=== PATIENT | male | born 1995 | race Two or more races ===

== ENCOUNTER 2016-10-28 08:17 | Emergency (ER) | payer SELFPAY ==
[~2016-10-28] VITALS: Ht 165.1 cm; Wt 54.4 kg
[2016-10-28] MEDS ORDERED: ACETAMINOPHEN 325 MG TABLET ONE (08:50)
[2016-10-28] MEDS ORDERED: ACETAMINOPHEN 325 MG TABLET PO ONE (09:00)
[2016-10-28 12:17] VITALS: BP 120/88
== END 2016-10-28 12:18 | disposition home or self-care (01) ==
LOC: ER 08:21
DX: S67.192A Crushing injury of right middle finger, initial encounter (principal); S60.412A Abrasion of right middle finger, initial encounter; Q84.6 Other congenital malformations of nails; W23.0XXA Caught, crushed, jammed, or pinched between moving objects, initial encounter; Y93.89 Activity, other specified; Y92.89 Other specified places as the place of occurrence of the external cause; Y99.9 Unspecified external cause status
CPT/HCPCS: 10060; 73140; 99284; A4606; A6402; Z7610

== ENCOUNTER 2016-11-06 18:09 | Inpatient (IN) | payer MEDICAID ==
[~2016-11-06] VITALS: Ht 167.6 cm; Wt 63.5 kg
--- NOTE | 2016-11-06 18:15 | NUR ---
AAOX3, BIB RA FROM THE STREET C/O RIGHT FOOT SWELLING, REDNESS AND HOT TO TOUCH. RESP IS EVEN AND UNLABORED WITH NAD NOTED. CMS WNL. SKIN IS WARM AND DRY. AWAITING MD FOR EVAL.
[2016-11-06] MEDS ORDERED: IV NS 0.9% 2,000 ML ONE (18:59)
[2016-11-06] MEDS ORDERED: KETOROLAC TROMETHAMINE INJ 30 MG/ML VIAL ONE (18:59)
[2016-11-06] MEDS ORDERED: MORPHINE SULFATE INJ 4 MG/ML DISP.SYRIN ONE (18:59)
[2016-11-06] MEDS ORDERED: IV SET PRIMARY 1 EA INFUS.SET MC ONE (18:59)
[2016-11-06] MEDS ORDERED: IV SET PRIMARY PUMP SET 1 EA INFUS.SET MC ONE (18:59)
[2016-11-06] MEDS ORDERED: KETOROLAC TROMETHAMINE INJ 30 MG/ML VIAL IV ONE (19:00)
[2016-11-06] MEDS ORDERED: MORPHINE SULFATE INJ 2 MG/ML DISP.SYRIN IV ONE (19:00)
[2016-11-06] MEDS ORDERED: CLINDAMYCIN 600 MG in IV D5W 100 ML IV ONE (19:00)
[2016-11-06] MEDS ORDERED: IV NS 0.9% 1,000 ML BAG IV ONE (19:00)
--- NOTE | 2016-11-06 19:00 | NUR ---
RECEIVED REPORT FROM NAY AGARWAL.
--- NOTE | 2016-11-06 19:01 | NUR ---
CALLED PHARMACY FOR MEDICATION.
--- NOTE | 2016-11-06 19:03 | NUR ---
XRAY AT BEDSIDE.
[2016-11-06 19:11] LABS: BASOPHILS # (AUTO) 0.5 /CMM (0.0-0.2); BASOPHILS % (AUTO) 3.1 % (0.0-2.0); EOSINOPHILS # (AUTO) 0.1 /CMM (0.0-0.7); EOSINOPHILS % (AUTO) 0.3 % (0.0-6.0); HEMATOCRIT 48 % (39-51); HEMOGLOBIN 16.6 g/dL (13.5-17.5); LYMPHOCYTES # (AUTO) 1.7 /CMM (0.8-4.8); LYMPHOCYTES % (AUTO) 9.9 % (20.0-44.0); MEAN CORPUSCULAR HEMOGLOBIN 29 PG (26.0-33.0); MEAN CORPUSCULAR HGB CONC 34 g/dl (31.0-36.0); MEAN CORPUSCULAR VOLUME 86 fL (80-96); MONOCYTES # (AUTO) 0.8 /CMM (0.1-1.30); MONOCYTES % (AUTO) 4.5 % (2.0-12.0); NEUTROPHILS # (AUTO) 13.9 /CMM (1.8-8.9); NEUTROPHILS % (AUTO) 82.2 % (43.0-81.0); PLATELET COUNT (AUTO) 267 /CMM (150-450); RDW COEFFICIENT OF VARIATION 12.2 (11.5-15.0); RED BLOOD CELL COUNT(AUTO) 5.65 MIL/uL (4.5-6.0)
[2016-11-06 19:18] LABS: CREATININE 1.1 mg/dL (0.6-1.3); POTASSIUM 4.3 mmol/L (3.5-5.1)
[2016-11-06 19:19] LABS: INR 1.09 (0.87-1.13); PROTHROMBIN TIME 11.4 SECS (9.5-12.7)
[2016-11-06] MEDS ORDERED: IV D5W 100 ML IV ONE (19:22)
[2016-11-06] MEDS ORDERED: CLINDAMYCIN 900 MG/6 ML VIAL ONE (19:22)
--- NOTE | 2016-11-06 19:32 | NUR ---
panel call. notified.
[2016-11-06 19:36] LABS: LACTIC ACID 1.3 mmol/L (0.4-2.0)
--- NOTE | 2016-11-06 20:33 | NUR ---
PT ASSIGNED TO MS 322-2
--- NOTE | 2016-11-06 20:44 | NUR ---
REPORT GIVEN TO NAY MCKENZIE FOR MS BED 322-2
[2016-11-06] MEDS ORDERED: Z GUARD REMEDY 2 OZ OINT TP PRN (21:00)
[2016-11-06] MEDS ORDERED: ONDANSETRON HCL/PF 4 MG/2 ML VIAL IVP PRN (21:00)
[2016-11-06] MEDS ORDERED: ZOLPIDEM TARTRATE 5 MG TABLET PO PRN (21:00)
[2016-11-06] MEDS ORDERED: CLINDAMYCIN IV RTU IN D5W 900 MG/50 ML PIGGYBACK IV SCH (21:00)
[2016-11-06] MEDS ORDERED: ACETAMINOPHEN 325 MG TABLET PO PRN (21:00)
[2016-11-06] MEDS ORDERED: MAGNESIUM HYDROXIDE 30 ML UDC PO PRN (21:00)
[2016-11-06] MEDS ORDERED: MAG HYDROX/AL HYDROX/SIMETH 30 ML UDC PO PRN (21:00)
--- NOTE | 2016-11-06 21:22 | NUR ---
PT TRASNFERED TO MS BED 322-2 VIA WC
[2016-11-06 21:30] VITALS: BP 106/74
--- NOTE | 2016-11-06 23:37 | NUR ---
MS/RN NOTES NEW ADMITTED PATIENT IS A 20YO MALE,COMPLAIN OF RIGHT FOOT PAIN/SWOLLEN FOR PAST 3DAYS. ALERT ORIENTEDX4. HOMELESS AND WAS FOUND ON FLOOR BY OFFICER. PATIENT REQUIRES ASSISTANCE IN AMBULATION AND HAVE REQUESTED TREATMENT FOR HIS SWOLLEN RIGHT FOOT AND MENTIONED THAT HE WOULD LIKE TO SEEK PSYCHIATRIC EVALUATION DUE TO DEPRESSION AND SUICIDAL THOUGHT IN PLANING STAGE. MD MADE AWARE. PATIENT REQUEST FOR SMOKING CESSATION ALSO. PROVIDED PATIENT ROOM ORIENTATION, CHECK BELONGINGS, PROVIDE SNACKS AND FLUIDS. WILL CONTINUE PLAN OF CARE AND CONTINUE MONITORING.
[2016-11-07] MEDS ORDERED: CLINDAMYCIN 900 MG/6 ML VIAL ONE (02:32)
[2016-11-07] MEDS ORDERED: IV D5W 50 ML IV ONE (02:39)
[2016-11-07] MEDS ORDERED: IV SET PRIMARY PUMP SET 1 EA INFUS.SET MC ONE (02:39)
[2016-11-07] MEDS ORDERED: SECONDARY IV SET 1 EA INFUS.SET MC ONE ×2 (02:40→12:29)
[2016-11-07] MEDS ORDERED: HYDROCODONE/APAP 5/325MG 1 EACH TABLET ONE (03:14)
[2016-11-07] MEDS: HYDROCODONE/APAP 5/325MG 1 EACH TABLET PO PRN ×3 (03:19→18:43)
--- NOTE | 2016-11-07 04:30 | NUR ---
MS/RN NOTES PATIENT ABLE TO SLEEP DURING THE NIGHT AND CAN VERBALIZE NEEDS. PAIN MEDICATION ADMINISTER DUE TO SEVERE PAIN ON RIGHT FOOT. TOLERATE MEDS AND WILL CONTINUE TO MONITOR .COOPERATIVE TO CARE.
--- NOTE | 2016-11-07 06:35 | NUR ---
MS/RN CLOSING NOTES PATIENT IN BED AWAKE. ABLE TO HAVE AM BLOOD DRAW. CALL LIGHTS WITHIN REACH. USES URINAL. ABLE TO SLEEP DURING THE NIGHT. LAST PAIN MEDICATION NORCO 5-325 MG TAB PO GIVEN AT 0300. WILL ENDORSE TO AM RN FOR CONTINUITY OF CARE.
--- NOTE | 2016-11-07 07:16 | NUR ---
MS/RN OPENING NOTES PATIENT RECEIVED ASLEEP IN BED AND EASILY AWAKENS. ALERT AND ORIENTED X 4. SAME ABLE TO VERBALIZED NEEDS. HEAD OF BED ELEVATED. IV ACCESS TO LEFT AC G# 20 INTACT AND PATENT. CALL LIGHT WITHIN REACH. BED LOW AND LOCKED. ALL SAFETY MEASURES MAINTAINED. WILL CONTINUE TO MONITOR ACCORDINGLY.
[2016-11-07 07:45] LABS: BASOPHILS % (AUTO) 0.1 % (0.0-2.0); EOSINOPHILS # (AUTO) 0.1 /CMM (0.0-0.7); EOSINOPHILS % (AUTO) 0.5 % (0.0-6.0); HEMATOCRIT 40 % (39-51); HEMOGLOBIN 13.6 g/dL (13.5-17.5); LYMPHOCYTES # (AUTO) 1.7 /CMM (0.8-4.8); LYMPHOCYTES % (AUTO) 14.2 % (20.0-44.0); MEAN CORPUSCULAR HEMOGLOBIN 29 PG (26.0-33.0); MEAN CORPUSCULAR HGB CONC 34 g/dl (31.0-36.0); MEAN CORPUSCULAR VOLUME 87 fL (80-96); MONOCYTES # (AUTO) 0.7 /CMM (0.1-1.30); MONOCYTES % (AUTO) 5.7 % (2.0-12.0); NEUTROPHILS # (AUTO) 9.4 /CMM (1.8-8.9); NEUTROPHILS % (AUTO) 79.5 % (43.0-81.0); PLATELET COUNT (AUTO) 251 /CMM (150-450); RDW COEFFICIENT OF VARIATION 12.9 (11.5-15.0); RED BLOOD CELL COUNT(AUTO) 4.63 MIL/uL (4.5-6.0); WHITE BLOOD COUNT (AUTO) 11.8 K/uL (4.3-11.0)
[2016-11-07 08:00] VITALS: BP 99/76
[2016-11-07 08:01] LABS: CREATININE 0.8 mg/dL (0.6-1.3); MAGNESIUM 1.8 mg/dL (1.8-2.4); PHOSPHORUS 4.2 mg/dL (2.5-4.9); POTASSIUM 4.7 mmol/L (3.5-5.1)
[2016-11-07] MEDS: NICOTINE PATCH (14MG) 14 MG PATCH.TD24 TD SCH (09:08)
--- NOTE | 2016-11-07 11:13 | NUR ---
Social service consult requested for homelessness. Per H&P report by Dr. Munroe, Pt. is a 20 year old male transient who presented to the ED for evaluation of an infection of the right foot. The patient complains of severe pain to the right foot for the past 3 nights. The patient denies any injuries, but reports that it might have been from a spider bite, as he has noted several around the right ankle. The patient was non-compliant with the doctor during examination, and could not obtain any further history. Pt. also admitted to having suicidal ideation with no plan/intent and requests help in psychiatric assistance and placement per doctor Munroe. MICHEL met with pt. bedside. Pt. is A & O x 4. Pt. was calm and cooperative during the assessment. Pt. is homeless and has been homeless for the past four years. Pt. stated he lived with his grandmother prior to being homeless. Pt. has no contact with any of his family. Pt. denies alcohol use. Pt. is a drug user and uses methamphetamines daily. Pt. is a cigarette smoker and smokes one pack a day. Pt. receives GR and food stamps. Pt. has suicidal ideations but no plans. Pt. denies homicidal ideations and visual/auditory hallucinations at this time. Pt. will be referred to a psychiatrist for further evaluation. Pt. has a history of psychiatric hospitalizations. The last hospitalization was approximately a year ago in [place]. Pt. has a psychiatric diagnosis of Anxiety, Bipolar and Schizophrenia and has not been on medications for quite a while. Pt. is willing to go to a [facility] upon discharge if not accepted into a psychiatric hospital for voluntary hospitalization. MICHEL to follow up with pt. prior to discharge to discuss discharge plan.
[2016-11-07] MEDS ORDERED: IV NS 0.9% 250 ML IV ONE (12:29)
[2016-11-07] MEDS: CLINDAMYCIN 900 MG in IV D5W 50 ML IV SCH ×2 (12:36→20:27)
[2016-11-07 16:00] VITALS: BP 112/66
--- NOTE | 2016-11-07 16:27 | NUR ---
RN NOTES PATIENT SEEN AND EVALUATED BY PSYCH DR MAR WITH ORDER TO GIVE ANTI-DEPRESSANT LEXAPRO 10MG TAB DAILY AND TO CONTINUE MONITORING PATIENT'S BEHAVIOR. PATIENT SO FAR HAS NO VERBALIZATION OF GOING HOME OR SUICIDAL TENDENCY AND HE'S VERY COMPLIANT WITH CARE AND EATING WELL. WILL CONTINUE TO MONITOR.
--- NOTE | 2016-11-07 18:44 | NUR ---
MS RN CLOSING NOTES PATIENT IN BED AWAKE AND RESTING @ MODERATE HIGH BACKREST. ALERT/ORIENTED X 4 WITH COMPLAINTS OF PAIN TO RIGHT FOOT @ THIS TIME. PRN NORCO5/325MG GIVEN AND DOCUMENTED. IV ACCESS ON LEFT AC INTACT AND PATENT. CALL LIGHT WITHIN REACH. BED LOW AND LOCKED. ALL SAFETY MEASURES MAINTAINED. ALL NEEDS AND CARE PROVIDED WELL. DUE MEDS GIVEN PRESCRIBED AND TOLERATED. WILL ENDORSED TO SEWING MACHINE TESTER NURSE FOR CONTINUITY OF CARE.
--- NOTE | 2016-11-07 19:05 | NUR ---
RN NOTES RECEIVED PT AWAKE IN BED, NO SOB, NOT IN DISTRESS TOLERATING ROOM AIR. PT ALERT AND ORIENTED X4, PAIN ON RIGHT FOOT AT TOLERABLE LEVEL AT THIS TIME /. RIGHT FOOT SWELLING WITH REDNESS AND DRY BLOOD NOTED BETWEEN 4TH AND 5TH TOE AND KEPT ELEVATED ON A PILLOW. IV ACCESS ON LEFT AC PATENT AND INTACT. KEPT COMFORTABLE AND ATTENDED. WILL CONTINUE TO MONITOR PT.
[2016-11-07 20:48] VITALS: BP 115/70
[2016-11-07 22:00] VITALS: BP 115/70
[2016-11-08] MEDS: CLINDAMYCIN 900 MG in IV D5W 50 ML IV SCH ×3 (05:54→20:25)
--- NOTE | 2016-11-08 07:30 | NUR ---
RN NOTES PT ASLEEP IN BED, NO SOB, NO SIGNS OF DISTRESS AND DISCOMFORT NOTED, TOLERATING ROOM AIR. SKIN CARE AND WOUND CARE DONE. KEPT RIGHT LOWER LEG ELEVATED. ALL DUE MEDS GIVEN. VITAL SIGNS STABLE, AFEBRILE. NO EPISODE OF NAUSEA AND VOMITING. ALL NEEDS ATTENDED. ENDORSED TO MORNING RN FOR CONTINUITY OF CARE.
--- NOTE | 2016-11-08 07:51 | NUR ---
RN Initial Notes Received pt. in stable condition awake and lying in bed A/O X4. No signs of distress or pain noted. Pt. bed in lower locked position, side rails up X2, call light within reach. Will continue to monitor accordingly.
[2016-11-08 08:00] VITALS: BP 103/69
[2016-11-08] MEDS: NICOTINE PATCH (14MG) 14 MG PATCH.TD24 TD SCH (08:30)
[2016-11-08] MEDS: ESCITALOPRAM OXALATE (10 MG) 10 MG TABLET PO SCH (08:30)
[2016-11-08] MEDS: HYDROCODONE/APAP 5/325MG 1 EACH TABLET PO PRN ×3 (12:20→22:12)
[2016-11-08 16:00] VITALS: BP 106/58
--- NOTE | 2016-11-08 19:30 | NUR ---
RN CLOSING NOTES PT. IN STABLE CONDITION LYING COMFORTABLE IN BED. NO COMPLAINTS OF PAIN OR DISTRESS NOTES. BED IN LOWER LOCKED POTION, SIDE RAILS UP X2, CALL LIGHT WITHIN REACH. ALL SAFETY MEASURES MAINTAINED. ALL ORDERS AND PT. NEEDS FULFILLED THROUGHOUT SHIFT. WILL ENDORSE TO GRAIN DISTRIBUTOR NURSE FOR MYKE
--- NOTE | 2016-11-08 19:35 | NUR ---
RN NOTES RECEIVED PT AWAKE, NO SOB, NOT IN DISTRESS TOLERATING ROOM AIR, APPEARS COMFORTABLE IN BED. PT ALERT AND ORIENTED X4, PAIN ON RIGHT FOOT AT TOLERABLE LEVEL AT THIS TIME 10/28. REDNESS AND SWELLING ON RIGHT FOOT NOTED AND WITH DRESSING INTACT WITH BLOOD STAIN NOTED BETWEEN 4TH AND 5TH TOE AND KEPT ELEVATED ON A PILLOW. IV ACCESS ON LEFT AC PATENT AND INTACT. KEPT COMFORTABLE AND ATTENDED. WILL CONTINUE TO MONITOR PT.
[2016-11-08 20:24] VITALS: BP 113/56
[2016-11-08 22:00] VITALS: BP 113/56
--- NOTE | 2016-11-08 22:12 | NUR ---
RN NOTES PT COMPLAINS OF PAIN ON HIS RIGHT FOOT 02/27, AND DRESSING ON RIGHT FOOT NOTED SOAKED WITH BLOOD. NORCO 5/235 MG TAB GIVEN PO AND TOLERATED WELL. WILL CONTINUE TO MONITOR PT.
--- NOTE | 2016-11-08 23:15 | NUR ---
RN NOTES PT ASLEEP, EASILY AROUSABLE PAIN ON HIS RIGHT FOOT AT TOLERABLE LEVEL AT THIS TIME 09/30. WILL CONTINUE TO MONITOR PT.
--- NOTE | 2016-11-09 02:15 | NUR ---
RN NOTES DRESSING ON RIGHT FOOT, BETWEEN 4TH AND 5TH TOE CHANGED, PT COMPLAINS OF PAIN. NORCO OFFERED AT FIRST PT WANTS TO BUT VERBALIZES ITS AT TOLERABLE LEVEL NOW, PER PT IT HURTS ONLY WHEN TOUCHED, NORCO NOT GIVEN. WILL CONTINUE TO MONITOR PT.
[2016-11-09] MEDS: CLINDAMYCIN 900 MG in IV D5W 50 ML IV SCH ×3 (04:34→21:31)
--- NOTE | 2016-11-09 07:19 | NUR ---
RN NOTES PT ASLEEP IN BED, BREATHING REGULAR AND UNLABORED, TOLERATING ROOM AIR. VITAL SIGNS STABLE, AFEBRILE. NO EPISODE OF NAUSEA AND VOMITING. KEPT PAIN AT TOLERABLE LEVEL. ALL DUE MEDS GIVEN. SKIN CARE AND WOUND DRESSING DONE. ALL NEEDS ATTENDED. ENDORSED TO MORNING RN FOR CONTINUITY OF CARE.
--- NOTE | 2016-11-09 07:31 | NUR ---
RN NOTES PT IN BED.SLEEPING BUT EASY TO AROUSE. IN NO APPARENT DISTRESS. RESPIRATIONS EVEN AND UNLABORED. DENIES PAIN AND DISCOMFORT AT THIS TIME. WILL CONTINUE TO MONITOR
[2016-11-09 07:57] VITALS: BP 115/62
[2016-11-09] MEDS: ESCITALOPRAM OXALATE (10 MG) 10 MG TABLET PO SCH (09:04)
[2016-11-09] MEDS: NICOTINE PATCH (14MG) 14 MG PATCH.TD24 TD SCH (09:04)
--- NOTE | 2016-11-09 11:30 | NUR ---
RN NOTES PT SEEN BY DR RAMOS- WITH NEW ORDERS NOTED AND CARRIED OUT. WILL CONTINUE TO MONITOR
[2016-11-09] MEDS: HYDROCODONE/APAP 5/325MG 1 EACH TABLET PO PRN (11:50)
[2016-11-09] MEDS: CADEXOMER IODINE 40 GM TUBE TP SCH (13:47)
--- NOTE | 2016-11-09 14:17 | NUR ---
RN NOTES PT'S MOTHER AT BEDSIDE. REQUESTING AID IN POSSIBLE REHAB PLACEMENT FOR PT POST DISCHARGE. NOTED. INFORMED CASE MANAGEMENT AND AD SETTER. MOTHER'S INFO: JEREMIAH SALMERON P# [phone]
--- NOTE | 2016-11-09 14:30 | NUR ---
MICHEL received a call from NAY White informing MICHEL that pt's mom is bedside and would like to speak to SW regarding a drug rehab program. MICHEL met with pt. and his mom Jenni Laird bedside. Pt. mom stated that she would like for pt. to be admitted to a drug rehab program. Pt. informed SW that he has been to [facility] while he was a teenager but went awol several times and is not allowed back to the program. MICHEL informed pt. and his mom she will contact [facility] and inquire about any vacancies into their program and follow up. Pt's mom Jenni informed MICHEL she will inquire with her sister as well who might know someone who works at a program and who might be able to assist.
[2016-11-09 16:00] VITALS: BP 115/63
--- NOTE | 2016-11-09 18:00 | NUR ---
RN NOTES PT IN BED, AWAKE, ALERT, ORIENTED X 3. IN NO APPARENT DISTRESS. RESPIRATIONS EVEN AND UNLABORED. DENIES PAIN AND TREATMENT. TOLERATED ALL MEDS AND TREATMENTS THIS SHIFT. WILL ENDORSE TO ONCOMING SHIFT
--- NOTE | 2016-11-09 19:30 | NUR ---
MS/RN RECEIVE PATIENT IN BED AWAKE, COMFORTABLE, NO NEEDS AT THIS TIME. WILL MONITOR.
[2016-11-09 20:00] VITALS: BP 110/51
--- NOTE | 2016-11-10 00:14 | NUR ---
MS/RN PATIENT IS SLEEPING, AROUSABLE, APPEAR COMFORTABLE, NO DISTRESS NOTED, CALL LIGHT IN REACH. WILL CONTINUE TO MONITOR.
[2016-11-10] MEDS: CLINDAMYCIN 900 MG in IV D5W 50 ML IV SCH ×3 (05:46→20:38)
--- NOTE | 2016-11-10 06:39 | NUR ---
MS/RN SLEEPING, COMFORTABLE, NO CHANGE IN CONDITION. ALL NEEDS ATTENDED AT THIS TIME. WILL CONTINUE TO MONITOR.
[2016-11-10 07:27] LABS: BASOPHILS % (AUTO) 0.6 % (0.0-2.0); EOSINOPHILS # (AUTO) 0.1 /CMM (0.0-0.7); EOSINOPHILS % (AUTO) 0.9 % (0.0-6.0); HEMATOCRIT 46 % (39-51); HEMOGLOBIN 15.4 g/dL (13.5-17.5); LYMPHOCYTES # (AUTO) 1.6 /CMM (0.8-4.8); LYMPHOCYTES % (AUTO) 26.7 % (20.0-44.0); MEAN CORPUSCULAR HEMOGLOBIN 29 PG (26.0-33.0); MEAN CORPUSCULAR HGB CONC 34 g/dl (31.0-36.0); MEAN CORPUSCULAR VOLUME 86 fL (80-96); MONOCYTES # (AUTO) 0.3 /CMM (0.1-1.30); NEUTROPHILS # (AUTO) 3.9 /CMM (1.8-8.9); NEUTROPHILS % (AUTO) 66.8 % (43.0-81.0); PLATELET COUNT (AUTO) 254 /CMM (150-450); RDW COEFFICIENT OF VARIATION 13.2 (11.5-15.0); RED BLOOD CELL COUNT(AUTO) 5.33 MIL/uL (4.5-6.0); WHITE BLOOD COUNT (AUTO) 5.9 K/uL (4.3-11.0)
--- NOTE | 2016-11-10 07:46 | NUR ---
MS RN OPENING NOTE PATIENT IS ASLEEP IN BED LOCKED IN LOWEST POSITION WITH SIDERAILS UPx2. SAFETY MEASURES IMPLEMENTED. CALL LIGHT WITHIN REACH. IV INTACT AND PATENT, NO REDNESS OR SWELLING NOTED. ALERT AND ORIENTED x4. NO PAIN AT THIS TIME. NO SOB OR DISTRESS NOTED. PATIENT HAS WOUND IN-BETWEEN FOURTH AND FIFTH TOE. NO KNOWN ALLERGIES. BEDREST. WILL FOLLOW UP WITH CASE MANAGEMENT IN REGARDS TO PATIENT DISCHARGE PLAN TO UPDATE MOTHER AND WILL CONTINUE TO MONITOR
[2016-11-10 08:00] VITALS: BP 104/60
[2016-11-10] MEDS: ESCITALOPRAM OXALATE (10 MG) 10 MG TABLET PO SCH (08:22)
[2016-11-10] MEDS: NICOTINE PATCH (14MG) 14 MG PATCH.TD24 TD SCH ×2 (08:22→20:34)
[2016-11-10] MEDS: CADEXOMER IODINE 40 GM TUBE TP SCH (08:23)
--- NOTE | 2016-11-10 09:41 | NUR ---
WOUND CARE CONSULT: PATIENT SEEN AND SKIN ASSESSMENT DONE. PATIENT ALERT, INDEPENDENT WITH BED MOBILITY, CONTINENT, OSKAR 18. PLS SEE SKIN ASSESSMENT IN PCS ALONG WITH RECOMMENDATIONS DISCUSSED WITH NURSING STAFF. MD IN AGREEMENT WITH PLAN OF CARE. Addendum: 11/10/16 at 0942 by LENORA MOSS WNDNU Amended: Links added.
[2016-11-10] MEDS: NEOMY SULF/BACITRAC ZN/POLY 15 GM TUBE TP SCH (10:00)
[2016-11-10] MEDS ORDERED: LIDOCAINE 2% 20 ML MDV TP PRN ×2 (10:30→11:00)
--- NOTE | 2016-11-10 11:06 | NUR ---
MS RN NOTE PATIENT'S TRIPLE ANTIBIOTIC OINTMENT HAS NOT BEEN DELIVERED BY PHARMACY. SPOKE TO PHARMACY MADE AWARE. ONCE RECEIVED I WILL APPLY TO AREA.
[2016-11-10] MEDS ORDERED: LIDOCAINE 2% JEL 5 ML TUBE MC PRN (12:30)
[2016-11-10] MEDS ORDERED: ENOXAPARIN SODIUM 40 MG/0.4 ML DISP.SYRIN SQ SCH (14:30)
[2016-11-10] MEDS: HYDROCODONE/APAP 5/325MG 1 EACH TABLET PO PRN (14:57)
--- NOTE | 2016-11-10 15:09 | NUR ---
MS RN NOTE SPOKE WITH JOSE LUIS OVALLE IN REGARDS TO PATIENT. PATIENT PREFERS TO STAY IN BED, BUT IS ABLE TO AMBULATE. PER JOSE LUIS TO REQUEST FOR PT EVALUATION. WILL ENDORSE TO BILLIARD PARLOR MANAGER NURSE FOR MYKE
--- NOTE | 2016-11-10 16:15 | NUR ---
MICHEL contacted pt's mom Jenni to inquire if she was able to get information from her sister regarding the drug rehab program. Jenni informed MICHEL that she is still waiting for a call back from her sister. Jenni informed MICHEL that pt. has shown interest in voluntary psychiatric hospitalization. MICHEL informed Jenni that since pt. has a pending Medi-darci application it would be very difficult to almost impossible to admit pt. at a voluntary psychiatric hospital, however MICHEL will contact [facility] to inquire if they accept pending Medi-darci pts. MICHEL did suggest to Jenni to take pt. to [facility] located if pt. feels he need for further psychiatric care. MICHEL contacted [facility] and spoke to Azar who informed MICHEL that they do not accept medi-darci pending pts. at their facility.
[2016-11-10 17:00] VITALS: BP 118/57
--- NOTE | 2016-11-10 18:45 | NUR ---
MS RN CLOSING NOTE PATIENT IS ALERT AND ORIENTED x4. AWAKE IN BED LOCKED IN LOWEST POSITION WITH SIDERAILS UP x2. NO PAIN AT THIS TIME. NO SOB OR DISTRESS NOTED. ALL DUE MEDICATIONS GIVEN ORDERED. WOUND TREATMENT PROVIDED ORDERED. CALL LIGHT WITHIN REACH AT ALL TIMES. SAFETY MEASURES IMPLEMENTED AT ALL TIMES. IV INTACT AND PATENT NO REDNESS OR SWELLING NOTED. ABLE TO COMMUNICATE NEEDS. WILL ENDORSE TO INTERACTIVE PRODUCER NURSE FOR MYKE
--- NOTE | 2016-11-10 19:59 | NUR ---
PER AM NURSE, NICOTINE PATCH FELL OUT DURING SHOWER. PATIENT HAS CRAVINGS FOR CIGARETTES, NOTIFIED DR. COVARRUBIAS. PER , MAY GIVE ANOTHER NICOTINE PATCH.
[2016-11-10 20:00] VITALS: BP 116/53
--- NOTE | 2016-11-10 20:00 | NUR ---
RECEIVED PATIENT IN BED, ALERT AND ORIENTED X4, CALM, NO RESPIRATORY DISTRESS, ON ROOM AIR, 02 SAT 97%, LUNG SOUNDS ARE CLEAR, ABDOMEN SOFT AND NON-TENDER, DENIES ANY PAIN AT THIS TIME. RIGHT FOOT DRESSING IS CLEAN, NO BLEEDING AT THIS TIME. MADE COMFORTABLE, CALL LIGHT WITHIN REACH.
[2016-11-10 20:19] VITALS: BP 116/53
--- NOTE | 2016-11-11 02:24 | NUR ---
CHANGED DRESSING TO RIGHT FOOT
[2016-11-11] MEDS: HYDROCODONE/APAP 5/325MG 1 EACH TABLET PO PRN (02:27)
[2016-11-11] MEDS: CLINDAMYCIN 900 MG in IV D5W 50 ML IV SCH ×3 (04:31→20:27)
--- NOTE | 2016-11-11 06:43 | NUR ---
PATIENT IS ALERT AND AWAKE, NO SOB, NO DISTRESS, SLEPT FOR 4 HOURS. WOUND CARE PROVIDED, NO ADVERSE CHANGE OF CONDITION DURING SHIFT. NEEDS ATTENDED, ALL DUE MEDICATIONS GIVEN, CALL LIGHT WITHIN REACH.
--- NOTE | 2016-11-11 07:35 | NUR ---
MS RN OPENING NOTE PATIENT IS ALERT AND ORIENTED x4. NO PAIN AT THISTIME. NO SOB OR DISTRESS NOTED. CALL LIGHT WITHIN REACH. SAFETY MEASURES IMPLEMENTED. AWAKE IN BED LOCKED IN LOWEST POSITION WITH SIDERAILS UP x2. IV INTACT AND PATENT NO REDNESS OR SWELLING NOTED. WILL HAVE PT EVALUATION THIS MORNING. WOUND TREATMENT WILL BE ADDRESSED. WILL CONTINUE TO MONITOR FOR CHANGES
[2016-11-11 08:08] VITALS: BP 105/49
[2016-11-11] MEDS: CADEXOMER IODINE 40 GM TUBE TP SCH (08:12)
[2016-11-11] MEDS: ESCITALOPRAM OXALATE (10 MG) 10 MG TABLET PO SCH (08:12)
[2016-11-11] MEDS: NEOMY SULF/BACITRAC ZN/POLY 15 GM TUBE TP SCH (08:18)
[2016-11-11] MEDS: NICOTINE PATCH (14MG) 14 MG PATCH.TD24 TD SCH (13:36)
--- NOTE | 2016-11-11 14:54 | NUR ---
MICHEL contacted pt's mom Jenni to inform her that pt. might be discharged tomorrow and to inquire if she was able to get pt. into a drug treatment program through a family contact at a program. Jenni informed MICHEL that it looks promising that pt. might be able to get into the program if he is serious about getting sober. MICHEL informed Jenni that pt. would not qualify to go to [facility] due to his pending Medi-darci application. MICHEL informed mom she will give pt. the following resources: Homeless Skilled Nursing resource directory that includes correction, Homeless Outreach, food chavarria, hot meals and showers, emergency housing etc; list of Drop-in centers and shelters, [facility] program brochure; 211 brochure; list of Alcohol and Drug Rehab programs; and [facility] address and phone number [[phone] ]. MICHEL met with pt. bedside. Pt. informed MICHEL that his mom is assisting him in getting to a drug treatment program. MICHEL gave pt. the following resources; Homeless Skilled Nursing resource directory that includes correction, Homeless Outreach, food chavarria, hot meals and showers, emergency housing etc; list of Drop-in centers and shelters, [facility] program brochure; 211 brochure; list of Alcohol and Drug Rehab programs; and [facility] address and phone number [[phone] ]. MICHEL encouraged pt. to attend and complete a drug treatment program. Homeless Patient Waiver Form was signed by pt. and placed in chart. Weekend RN for pt. will have to call pt's mother Jenni prior to pt. being discharged to inform her regarding discharge plan.
[2016-11-11 16:10] VITALS: BP 110/61
--- NOTE | 2016-11-11 18:29 | NUR ---
MS RN CLOSING NOTE PATIENT IS ALERT AND ORIENTED x4. NO PAIN AT THIS TIME. NO SOB OR DISTRESS NOTED. ALL DUE MEDICATIONS GIVEN ORDERED. CALL LIGHT WITHIN REACH AT ALL TIMES. WOUND TREATMENT DONE. IV INTACT AND PATENT NO REDNESS RO SWELLING NOTED. SAFETY MEASURES IMPLEMENTED. AMBULATORY. PT EVALUATION DONE TODAY, DOES NOT NEED PT PATIENT CAN AMBULATE ALONE. POSSIBLE DISCHARGE TOMORROW, NURSE MUST INFORM MOTHER (CARLOS). WILL ENDORSE TO PATIENT ACCOUNT SPECIALIST NURSE FOR MYKE
--- NOTE | 2016-11-11 19:15 | NUR ---
RN OPEN NOTES RECEIVED PATIENT AWAKE LAYING IN BED. A/OX4. NO SIGNS OF REDNESS OR INFILTRATION. BREATHING EVEN AND UNLABORED. IV IN LAC. PATENT AND INTACT, NO SIGNS OF REDNESS OR INFILTRATION. DRESSING ON R FOOT, C/D/I. DENIES ANY PAIN AT THIS TIME. BED IN LOW LOCKED POSITION WITH SIDE RAILS X2. CALL LIGHT WITHIN REACH. WILL CONTINUE TO MONITOR.
[2016-11-11 20:00] VITALS: BP 118/60
[2016-11-11 20:55] VITALS: BP 118/60
--- NOTE | 2016-11-11 21:20 | NUR ---
RN NOTES PATIENT ASK FOR SLEEPING PILL, STATES HE HAD A HARD TIME SLEEPING LAST NIGHT. ADMINISTERED AMBIEN PRN ORDERED. WILL CONTINUE TO MONITOR.
[2016-11-12] MEDS: CLINDAMYCIN 900 MG in IV D5W 50 ML IV SCH ×2 (05:22→12:44)
[2016-11-12] MEDS ORDERED: IV NS 0.9% 250 ML IV ONE (05:26)
--- NOTE | 2016-11-12 06:42 | NUR ---
RN CLOSING NOTES PATIENT RESTING IN BED. A/OX4. NO SIGNS OF DISTRESS OR DISCOMFORT. BREATHING EVEN AND UNLABORED. IV IN LAC. PATENT AND INTACT, NO SIGNS OF REDNESS OR INFILTRATION. DRESSING ON R FOOT, C/D/I. DENIES ANY PAIN AT THIS TIME. NO SIGNIFICANT CHANGES THROUGH THE NIGHT. PATIENT KEPT CLEAN DRY AND COMFORTABLE. BED IN LOW LOCKED POSITION WITH SIDE RAILS X2. CALL LIGHT WITHIN REACH. WILL ENDORSE TO AM SHIFT FOR MYKE. .
[2016-11-12 07:08] LABS: BASOPHILS % (AUTO) 0.7 % (0.0-2.0); EOSINOPHILS # (AUTO) 0.1 /CMM (0.0-0.7); EOSINOPHILS % (AUTO) 2.4 % (0.0-6.0); HEMATOCRIT 46 % (39-51); HEMOGLOBIN 15.3 g/dL (13.5-17.5); LYMPHOCYTES % (AUTO) 43.9 % (20.0-44.0); MEAN CORPUSCULAR HEMOGLOBIN 29 PG (26.0-33.0); MEAN CORPUSCULAR HGB CONC 34 g/dl (31.0-36.0); MEAN CORPUSCULAR VOLUME 86 fL (80-96); MONOCYTES # (AUTO) 0.3 /CMM (0.1-1.30); MONOCYTES % (AUTO) 6.8 % (2.0-12.0); NEUTROPHILS # (AUTO) 2.1 /CMM (1.8-8.9); NEUTROPHILS % (AUTO) 46.2 % (43.0-81.0); PLATELET COUNT (AUTO) 286 /CMM (150-450); WHITE BLOOD COUNT (AUTO) 4.6 K/uL (4.3-11.0)
--- NOTE | 2016-11-12 07:10 | NUR ---
MS RN OPENING NOTE PATIENT RECEIVED AWAKE IN BED IN NO ACUTE SIGNS OF DISTRESS. ALERT AND ORIENTED x4. VERBALLY RESPONSIVE WITH NO C/O PAIN OR DISCOMFORTS AT THIS TIME. ONJ ROOM AIR, NO SOB NOTED. CALL LIGHT WITHIN REACH. BED LOCKED AND IN LOWEST POSITION WITH SIDERAILS UP x2. SAFETY MEASURES IMPLEMENTED. IV ACCESS O LEFT AC INTACT AND PATENT, NO REDNESS OR SWELLING NOTED. WILL CONTINUE TO MONITOR ACCORDINGLY.
[2016-11-12 07:16] LABS: CALCIUM, SERUM 8.8 mg/dL (8.5-10.1); CREATININE 0.9 mg/dL (0.6-1.3); POTASSIUM 4.3 mmol/L (3.5-5.1)
[2016-11-12 08:00] VITALS: BP 111/65
[2016-11-12] MEDS: ESCITALOPRAM OXALATE (10 MG) 10 MG TABLET PO SCH (08:55)
[2016-11-12] MEDS: CADEXOMER IODINE 40 GM TUBE TP SCH (08:57)
[2016-11-12] MEDS: NEOMY SULF/BACITRAC ZN/POLY 15 GM TUBE TP SCH (08:58)
--- NOTE | 2016-11-12 13:50 | NUR ---
RN DISCHARGED NOTES PATIENT LEFT UNIT AMBULATORY IN STABLE CONDITION ACCOMPANIED BY BIG DATA SOFTWARE ENGINEER TO WAITING [facility]AXI IN FRONT OF THE LOBBY. HE IS ALERT AND ORIENTED X4, NO COMPLAINTS OF PAIN OR DISCOMFORTS VOICED DURING DISCHARGE. HE WAS VISITED BY HIS MOTHER THIS MORNING AND PATIENT REFUSED TO GO TO REHAB WHERE IS MOM WANTED HIM TO GO. LEATHER PIECE INSPECTOR MADE AWARE AND SPOKE TO BOTH PATIENT AND MOTHER. PATIENT WANTED TO BE DROP BY [facility] [place] [facility], PT'S MOTHER AND LEATHER PIECE INSPECTOR ARE AWARE. V/S CHECKED, WNL AND RECORDED. FLU AND PNEUMO VACCINES REFUSED BY PATIENT. PHOTOS OF WOUNDS TAKEN AND FILED. ALL BELONGINGS CHECKED, COUNTED AND SIGNED FORM. HEALTH TEACHINGS GIVEN TO PATIENT AND VERBALIZED UNDERSTANDING. MD AND CHARGE NURSE AWARE OF PT'S DISCHARGE.
== END 2016-11-12 13:30 | disposition home or self-care (01) | DRG 872 ==
LOC: ER 18:10 → MED 20:35
PROVIDERS: ADMIT Family Medicine; ATTEND Family Medicine
DX: A41.9 Sepsis, unspecified organism (principal); L03.115 Cellulitis of right lower limb; F32.2 Major depressive disorder, single episode, severe without psychotic features; L02.611 Cutaneous abscess of right foot; F41.9 Anxiety disorder, unspecified; D72.829 Elevated white blood cell count, unspecified; Z59.0 Homelessness; F12.10 Cannabis abuse, uncomplicated; F15.10 Other stimulant abuse, uncomplicated; F17.210 Nicotine dependence, cigarettes, uncomplicated; S91.301A Unspecified open wound, right foot, initial encounter; X58.XXXA Exposure to other specified factors, initial encounter; Y93.9 Activity, unspecified; Y92.9 Unspecified place or not applicable; Y99.9 Unspecified external cause status; B95.62 Methicillin resistant Staphylococcus aureus infection as the cause of diseases classified elsewhere; F20.9 Schizophrenia, unspecified
CPT/HCPCS: 36415; 71010-TC; 73630-TC; 80048-TC; 80061-TC; 83605-TC; 83735-TC; 84100-TC; 85025-TC; 85730-TC; 87040-TC; 87070-TC; 87081-TC; 97001-TC; A4606; A6402; A6403; J1885; J2270; J3490; J7030; J7050; J7060; Z7610